=== PATIENT | male | born 1960 | race Caucasian/White ===

== ENCOUNTER 2018-10-27 04:25 | Emergency (ER) | payer OTHER ==
[~2018-10-27] VITALS: Ht 170.2 cm; Wt 106.2 kg
[2018-10-27] MEDS ORDERED: tranexamic acid inj. 1,000 MG in normal saline 100ml IV soln 100 ML IV STA (05:40)
[2018-10-27] MEDS ORDERED: normal saline 1000ml 1,000 ML IV ONE (05:50)
[2018-10-27 05:55] LABS: BASOPHILS # (AUTO) 0.1 X10'3 (0-0.2); BASOPHILS % (AUTO) 0.7 % (0-1); EOSINOPHILS # (AUTO) 0.1 X10'3 (0-0.9); EOSINOPHILS % (AUTO) 0.7 % (0-6); HEMATOCRIT 46.2 % (42.0-52.0); HEMOGLOBIN 15.4 g/dl (14.0-17.9); LYMPHOCYTES # (AUTO) 1.5 X10'3 (1.1-4.8); LYMPHOCYTES % (AUTO) 15.5 % (21-51); MEAN CORPUSCULAR HEMOGLOBIN 29.4 PG (27.0-31.0); MEAN CORPUSCULAR HGB CONC 33.3 g/dL (33.0-36.5); MEAN CORPUSCULAR VOLUME 88.3 FL (78-98); MEAN PLATELET VOLUME 8.7 FL (7.4-10.4); MONOCYTES # (AUTO) 0.9 X10'3 (0-0.9); MONOCYTES % (AUTO) 9.9 % (2-12); NEUTROPHILS # (AUTO) 6.9 X10'3 (1.8-7.7); NEUTROPHILS % (AUTO) 73.2 % (42-75); PLATELET COUNT 263 X10'3 (140-440); RED BLOOD COUNT 5.23 X10'6 (4.70-6.10); RED CELL DISTRIBUTION WIDTH 12.7 % (11.5-14.5); WHITE BLOOD COUNT 9.5 X10'3 (4.5-11.0)
[2018-10-27 06:17] LABS: ALANINE AMINOTRANSFERASE 43 U/L (12-78); ALBUMIN 3.5 G/DL (3.4-5.0); ALBUMIN/GLOBULIN RATIO 1.3 (1.1-1.5); ALKALINE PHOSPHATASE 57 IU/L (46-116); ANION GAP 10 (8-16); ASPARTATE AMINO TRANSFERASE 27 U/L (10-37); BILIRUBIN,TOTAL 1.1 MG/DL (0.1-1.0); BLOOD UREA NITROGEN 27 MG/DL (7-18); BUN/CREATININE RATIO 16.7 (5.4-32.0); CALCIUM 8.2 MG/DL (8.5-10.1); CHLORIDE 100 MMOL/L (99-107); CREATININE 1.62 MG/DL (0.60-1.10); GLUCOSE 314 MG/DL (70-104); POTASSIUM 4.5 MMOL/L (3.5-5.1); SODIUM 134 MMOL/L (135-145); TOTAL CARBON DIOXIDE 24.5 MMOL/L (24-32); TOTAL PROTEIN 6.3 G/DL (6.4-8.2); eGFR 44 ML/MIN
[2018-10-27 06:26] LABS: CLARITY,URINE CLEAR (Clear); COLOR,URINE YELLOW (Yellow); GLUCOSE, URINE >=1000 mg/dl (Neg); KETONES,URINE NEGATIVE (Neg); LEUKOCYTE ESTERASE ,URINE NEGATIVE (Neg); NITRITES, URINE NEGATIVE (Neg); OCCULT BLOOD,URINE NEGATIVE (Neg); PH,URINE 5.5 (4.8-8.0); PROTEIN,URINE NEGATIVE (Neg); UROBILINOGEN,URINE 0.2 E.U/dL (0.2-1.0)
[2018-10-27 06:27] LABS: UA COLLECTION TYPE CLN CATCH MIDSTREAM
[2018-10-27 06:34] LABS: MUCUS STRANDS FEW /LPF (Neg); SQUAMOUS EPITHELIAL CELL,UR FEW /LPF (FEW)
[2018-10-27 06:36] LABS: HYALINE CASTS 0-3 /LPF (NEGATIVE)
[2018-10-27 06:37] LABS: BACTERIA,URINE FEW /HPF (Neg); RBC,URINE 0-2 /HPF (0-2)
[2018-10-27 07:12] VITALS: BP 108/90
== END 2018-10-27 07:30 | disposition home or self-care (01) ==
LOC: ER 04:27
DX: K92.2 Gastrointestinal hemorrhage, unspecified (principal); I10 Essential (primary) hypertension; F17.210 Nicotine dependence, cigarettes, uncomplicated
CPT/HCPCS: 36415; 80053; 81001; 85025; 87088; 96365; 99283; J7030

== ENCOUNTER 2021-11-23 19:14 | Emergency (ER) | payer BC, OTHER ==
[~2021-11-23] VITALS: Ht 170.2 cm; Wt 104.5 kg
[2021-11-23 19:20] VITALS: BP 150/89
[2021-11-23] MEDS ORDERED: gabapentin 100mg capsule PO STA (20:19)
[2021-11-23] MEDS ORDERED: GABA-530 PO (20:22)
== END 2021-11-23 20:37 | disposition home or self-care (01) ==
LOC: ER 19:15
DX: M54.16 Radiculopathy, lumbar region (principal); M25.551 Pain in right hip; I10 Essential (primary) hypertension; G89.29 Other chronic pain; Z79.899 Other long term (current) drug therapy
CPT/HCPCS: 72100; 73502; 99284

== ENCOUNTER 2022-07-01 22:51 | Emergency (ER) | payer BC ==
[~2022-07-01 22:51] MED LIST: GABA-530 PO
== END 2022-07-02 01:28 | disposition left against medical advice (07) ==
LOC: ER 07-02 01:26
DX: T14.8XXA Other injury of unspecified body region, initial encounter (principal); Z53.21 Procedure and treatment not carried out due to patient leaving prior to being seen by health care provider

== ENCOUNTER 2022-12-21 10:56 | Day surgery (SDC) | payer BC ==
[2022-12-16 09:05] LABS: BASOPHILS # (AUTO) 0.1 X10'3 (0-0.2); BASOPHILS % (AUTO) 1.7 % (0-1); EOSINOPHILS # (AUTO) 0.1 X10'3 (0-0.9); EOSINOPHILS % (AUTO) 1.6 % (0-6); HEMATOCRIT 54.5 % (42.0-52.0); LYMPHOCYTES # (AUTO) 1.3 X10'3 (1.1-4.8); LYMPHOCYTES % (AUTO) 19.9 % (21-51); MEAN CORPUSCULAR HEMOGLOBIN 29.4 PG (27.0-31.0); MEAN CORPUSCULAR HGB CONC 33.6 g/dL (33.0-36.5); MEAN CORPUSCULAR VOLUME 87.5 FL (78-98); MEAN PLATELET VOLUME 7.8 FL (7.4-10.4); MONOCYTES # (AUTO) 0.9 X10'3 (0-0.9); MONOCYTES % (AUTO) 13.7 % (2-12); NEUTROPHILS % (AUTO) 63.1 % (42-75); PLATELET COUNT 224 X10'3 (140-440); RED BLOOD COUNT 6.22 X10'6 (4.70-6.10); RED CELL DISTRIBUTION WIDTH 14.2 % (11.5-14.5); WHITE BLOOD COUNT 6.4 X10'3 (4.5-11.0)
[2022-12-16 09:16] LABS: APTT 29 SECONDS (22-32)
[2022-12-16 09:22] LABS: ALANINE AMINOTRANSFERASE 32 U/L (12-78); ALBUMIN 3.9 G/DL (3.4-5.0); ALBUMIN/GLOBULIN RATIO 1.3 (1.1-1.5); ALKALINE PHOSPHATASE 52 IU/L (46-116); ASPARTATE AMINO TRANSFERASE 24 U/L (10-37); BILIRUBIN,TOTAL 0.9 MG/DL (0.1-1.0); CALCIUM 9.1 MG/DL (8.5-10.1); CREATININE 1.26 MG/DL (0.60-1.10); GLUCOSE 112 MG/DL (70-104); TOTAL CARBON DIOXIDE 27.2 MMOL/L (24-32); eGFR 58 ML/MIN
[2022-12-16 09:24] LABS: BLOOD UREA NITROGEN 20 MG/DL (7-18); BUN/CREATININE RATIO 15.9 (10.0-20.0)
[2022-12-16 09:33] LABS: ANION GAP 8 (8-16); CHLORIDE 105 MMOL/L (99-107); POTASSIUM 4.3 MMOL/L (3.5-5.1); SODIUM 140 MMOL/L (135-145)
[2022-12-16 09:35] LABS: HEMOGLOBIN 18.3 g/dl (14.0-17.9)
[2022-12-21] VITALS (11 sets, daily range): BP systolic 119–156; BP diastolic 40–88
[~2022-12-21] VITALS: Ht 170.2 cm; Wt 112.4 kg
[2022-12-21] MEDS ORDERED: nitroGLYCERIN 0.4mg SUBLingual tab SL PRN (11:15)
[2022-12-21] MEDS ORDERED: diphenhydrAMINE 25mg capsule PO PRN (11:15)
[2022-12-21] MEDS ORDERED: LORazepam 0.5 MG tablet PO PRN (11:15)
[2022-12-21] MEDS ORDERED: normal saline 1,000 ML IV SCH (11:15)
[2022-12-21] MEDS ORDERED: DEXTROSE 15 GM of carb/4 tabs (each vial/BOTTLE has 4 tablets) PO PRN ×2 (11:20)
[2022-12-21] MEDS ORDERED: glucagon, human recombinant 1mg kit SUBCUT PRN (11:20)
[2022-12-21] MEDS ORDERED: insulin Lispro (HumaLOG) vial - multi-dose SQ SCH (11:20)
[2022-12-21] MEDS ORDERED: dextrose 50%-water 50ml dispensing syringe IV PRN ×2 (11:20)
[2022-12-21] MEDS ORDERED: MESSAGE TO PHARMACY PO ONE (11:20)
[2022-12-21] MEDS ORDERED: LISI40TA13 PO (11:44)
[2022-12-21] MEDS ORDERED: NITR0.4T48 SL (11:44)
[2022-12-21] MEDS ORDERED: ATOR40TA72 PO (11:44)
[2022-12-21] MEDS ORDERED: ASPI-1397 PO (11:44)
[2022-12-21] MEDS ORDERED: CARV3.123 PO (11:44)
[2022-12-21] MEDS ORDERED: LIDOcaine 1% 30ml preserv. free vial ONE (13:11)
[2022-12-21] MEDS ORDERED: fentaNYL/PF 50MCG/1 ML 2ML syringe ONE ×2 (13:11→14:05)
[2022-12-21] MEDS ORDERED: iohexol 350MG/ML 100ml bottle IV ONE (13:11)
[2022-12-21] MEDS ORDERED: midazolam 1 mg/ML 2ml injection ONE ×2 (13:11→14:02)
[2022-12-21] MEDS ORDERED: iohexol 350 MG/ML 50ML vial IV ONE ×2 (13:11→14:21)
[2022-12-21] MEDS ORDERED: normal saline 1000ml 1,000 ML IV SCH (15:15)
[2022-12-21] MEDS ORDERED: ondansetron/PF 4mg/2ml inj IV PRN (15:15)
[2022-12-21] MEDS ORDERED: proCHLORperazine 10 MG/2 ml inj IV PRN (15:15)
[2022-12-21] MEDS ORDERED: OXAZEpam 15mg capsule PO PRN (15:15)
[2022-12-21] MEDS ORDERED: HYDROcodone/acetaminophen 5mg/325mg tablet PO PRN (15:15)
[2022-12-21] MEDS ORDERED: HYDROcodone/acetaminophen 10/325mg tab PO PRN (15:15)
[2022-12-21] MEDS ORDERED: insulin glargine (Lantus) pen - multi-dose SQ SCH (21:00)
== END 2022-12-21 20:15 | disposition home or self-care (01) ==
LOC: SSTAY O 10:56
PROVIDERS: ATTEND Internal Medicine Cardiovascular Disease
DX: R94.39 Abnormal result of other cardiovascular function study (principal); R07.89 Other chest pain; I25.10 Atherosclerotic heart disease of native coronary artery without angina pectoris; I42.9 Cardiomyopathy, unspecified; E11.9 Type 2 diabetes mellitus without complications; M54.32 Sciatica, left side; I10 Essential (primary) hypertension; J44.9 Chronic obstructive pulmonary disease, unspecified; I73.9 Peripheral vascular disease, unspecified; E66.9 Obesity, unspecified; Z68.38 Body mass index [BMI] 38.0-38.9, adult; F17.290 Nicotine dependence, other tobacco product, uncomplicated; Z96.642 Presence of left artificial hip joint; Z95.5 Presence of coronary angioplasty implant and graft; Z79.899 Other long term (current) drug therapy
CPT/HCPCS: 36415; 80053; 82948; 85025; 85610; 85730; 93005; 93458; 99152; 99153; C1751; C1760; J1644; J1815; J2250; J3010; J3490; J7030; Q0163; Q9967; A6258; A6449

== ENCOUNTER 2023-03-04 06:44 | Emergency (ER) | payer BC ==
[~2023-03-04] VITALS: Ht 170.2 cm; Wt 111.4 kg
[~2023-03-04 06:44] MED LIST changes: +ASPI-1397 PO; +ATOR40TA72 PO; +CARV3.123 PO; -GABA-530 PO; +LISI40TA13 PO; +NITR0.4T48 SL
[2023-03-04] MEDS ORDERED: oxyCODONE/APAP 5-325mg tablet PO ONE (07:05)
[2023-03-04] MEDS ORDERED: predniSONE 20 mg tablet PO ONE (07:05)
[2023-03-04 07:06] VITALS: BP 153/87
[2023-03-04] MEDS ORDERED: PRED20TA PO (08:04)
[2023-03-04] MEDS ORDERED: OXYC-150 PO (08:04)
== END 2023-03-04 08:59 | disposition home or self-care (01) ==
LOC: ER 06:45
DX: M54.32 Sciatica, left side (principal); M25.552 Pain in left hip; I10 Essential (primary) hypertension; G89.29 Other chronic pain; Z79.82 Long term (current) use of aspirin; Z88.5 Allergy status to narcotic agent; Z79.899 Other long term (current) drug therapy
CPT/HCPCS: 73502; 99283; J7512